=== PATIENT | female | born 1955 | race African-American/Black ===

== ENCOUNTER 2017-02-21 09:35 | Day surgery (SDC) | payer BC ==
[~2017-02-21] VITALS: Ht 167.6 cm; Wt 74.5 kg
[~2017-02-21 09:35] MED LIST: MAXZIDE-25MG TA1 TAB PO; MULTIPLE VITAMI1 CAP PO; NORVASC 5MG5 MG/TAB PO; PRINIVIL10 MG PO; TYLENOL 325MG325 MG PO; ZOCOR 20MG20 MG PO
[2017-02-21 10:05] VITALS: BP 141/83; PULSE 84; TEMP 97
[2017-02-21] MEDS ORDERED: LIPITOR 10MG10 MG PO (10:19)
[2017-02-21] MEDS ORDERED: NEURONTIN300 MG/CAP PO (10:19)
[2017-02-21] MEDS ORDERED: MULTI VITAMINS1 TAB PO (10:20)
[2017-02-21] MEDS ORDERED: ASPIRIN 32325 MG/TAB PO (10:21)
[2017-02-21] MEDS ORDERED: ADVIL200 MG PO (10:22)
[2017-02-21 11:45] VITALS: BP 121/76; PULSE 74; TEMP 97.2
[2017-02-21 12:00] VITALS: BP 121/78; PULSE 65
[2017-02-21 12:05] VITALS: BP 126/75; PULSE 60
[2017-02-21 12:30] VITALS: BP 111/74
[2017-02-21 12:44] VITALS: BP 110/67; PULSE 76
== END 2017-02-21 12:55 | disposition home or self-care (01) ==
LOC: SDCO 09:35
DX: Z12.11 Encounter for screening for malignant neoplasm of colon (principal); D12.6 Benign neoplasm of colon, unspecified; K57.30 Diverticulosis of large intestine without perforation or abscess without bleeding; E78.00 Pure hypercholesterolemia, unspecified; I10 Essential (primary) hypertension; Z86.010 Personal history of colon polyps
CPT/HCPCS: OP; J2250; J3010; J7030

== ENCOUNTER → 2017-02-28 | Outpatient (CLI) | payer BC ==
[~2017-02-28] MED LIST changes: +ADVIL200 MG PO; +ASPIRIN 32325 MG/TAB PO; +LIPITOR 10MG10 MG PO; +MULTI VITAMINS1 TAB PO; +NEURONTIN300 MG/CAP PO
== END ==
LOC: MC.RAD 11:20
DX: Z12.31 Encounter for screening mammogram for malignant neoplasm of breast (principal)

== ENCOUNTER → 2018-03-13 | Outpatient (CLI) | payer BC | LOC: MC.RAD 10:36 | DX: Z12.31 Encounter for screening mammogram for malignant neoplasm of breast (principal); N64.89 Other specified disorders of breast ==

== ENCOUNTER → 2018-03-19 | Outpatient (CLI) | payer BC | LOC: MC.RAD 13:38 | DX: R92.8 Other abnormal and inconclusive findings on diagnostic imaging of breast (principal) ==

== ENCOUNTER → 2019-04-02 | Outpatient (CLI) | payer BC | LOC: MC.RAD 06:44 | DX: Z12.31 Encounter for screening mammogram for malignant neoplasm of breast (principal) ==

== ENCOUNTER → 2020-04-07 | Outpatient (CLI) | payer MEDICARE | LOC: MC.RAD 07:22 | DX: Z12.31 Encounter for screening mammogram for malignant neoplasm of breast (principal) ==

== ENCOUNTER 2020-07-08 12:54 | Emergency (ER) | payer MEDICARE ==
[~2020-07-08] VITALS: Ht 167.6 cm; Wt 72.7 kg
[2020-07-08 13:07] VITALS: BP 167/83; TEMP 97.6
[2020-07-08] MEDS ORDERED: EPA FISH OIL1 SGL PO (13:23)
[2020-07-08] MEDS ORDERED: CALCIUM 600MG+D1 TAB PO (13:23)
[2020-07-08 14:50] VITALS: PULSE 80
== END 2020-07-08 14:50 | disposition home or self-care (01) ==
LOC: COL.ER 12:54
DX: S09.90XA Unspecified injury of head, initial encounter (principal); W01.10XA Fall on same level from slipping, tripping and stumbling with subsequent striking against unspecified object, initial encounter